=== PATIENT | male | born 1950 | race Two or more races ===

== ENCOUNTER 2023-03-01 05:00 | Emergency (ER) | payer OTHER ==
[~2023-03-01] VITALS: Ht 172.7 cm; Wt 86.2 kg
== END 2023-03-01 11:00 | disposition home or self-care (01) ==
LOC: ER 05:01
DX: S20.212A Contusion of left front wall of thorax, initial encounter (principal); W19.XXXA Unspecified fall, initial encounter; Y93.89 Activity, other specified; Y92.89 Other specified places as the place of occurrence of the external cause; Y99.8 Other external cause status; I10 Essential (primary) hypertension
CPT/HCPCS: 71111; 96372; 99283; J1885